=== PATIENT | female | born 2000 | race Caucasian/White ===

== ENCOUNTER 2020-09-15 15:31 | Emergency (ER) | payer SELFPAY ==
[2020-09-15] MEDS ORDERED: Ondansetron PF 4 MG/2 ML Vial ONE ×2 (16:44→17:53)
[2020-09-15 16:53] LABS: #Monocytes 0.5 10x3/uL (0.0-1.1); #Neutrophils 6.5 10x3/uL (1.5-8.4); %Basophils 0.3 % (0.0-2.0); %Eosinophils 0.3 % (0.0-6.0); %Lymphocytes 7.5 % (18.0-47.0); %Monocytes 6.1 % (0.0-10.0); %Neutrophils 84.8 % (40.0-75.0); Hemoglobin 14.6 g/dL (12.0-15.5); Mean Corpuscular HGB CONC 32.9 g/dL (32.0-36.0); Mean Corpuscular Hemoglobin 31.1 pg (27.0-33.0); Mean Corpuscular Volume 94.5 fl (81.6-98.3); Mean Platelet Volume 8.8 fl (7.4-10.4); Platelet Count 241 10x3/uL (150-450); RBC Distribution Width 12.5 % (11.5-14.5); White Blood Cell (WBC) Count 7.7 10x3/uL (3.5-10.5)
[2020-09-15 17:13] LABS: ALT (SGPT) 24 U/L (8-55); AST (SGOT) 14 U/L (5-34); Albumin 4.2 g/dL (3.5-5.0); Alkaline Phosphatase 100 U/L (40-110); Anion Gap 13 mmol/L (10-20); BUN (Urea Nitrogen) 10 mg/dL (7.0-18.7); CK (CPK) 28 U/L (29-168); Calc. Creatinine Clearance 0 mL/min (70-130); Calcium 9.1 mg/dL (7.8-10.44); Carbon Dioxide 25 mmol/L (22-29); Chloride 104 mmol/L (98-107); Globulin 3.4 g/dL (2.4-3.5); Glucose 98 mg/dL (70-105); Lipase 9 U/L (8-78); Potassium 3.5 mmol/L (3.5-5.1); Protein, Total 7.6 g/dL (6.0-8.3); Sodium 138 mmol/L (136-145)
[2020-09-15 18:34] LABS: Bilirubin Neg (Negative); Blood, Urine 25 (Negative); Clarity Clear (Clear); Glucose, Urine (Dipstick) Normal (Negative); Ketone, Urine 50 mg/dL (Negative); Leukocyte 25 (Negative); Nitrite Negative (Negative); Protein, Urine (Dipstick) 15 mg/dl (Neg-Trace); Urobilinogen Normal mg/dL (Less than 2)
[2020-09-15 18:35] LABS: Pregnancy Test - Urine (BHCG) Negative (Negative); Pregu Control Background? CLEAR/WHITE (CLR/WHITE); Pregu Control Bar Appear? YES (CONTROL BAR)
[2020-09-15 18:47] LABS: Bacteria/HPF Rare-Few HPF (None Seen)
[2020-09-15 18:48] LABS: Trichomonas/HPF Rare HPF (None Seen)
[2020-09-15] MEDS ORDERED: Morphine 4 MG/ML VIAL ONE (19:15)
[2020-09-16 13:38] LABS: SARS-CoV-2 PCR by NAA Not Detected (NotDetected)
== END 2020-09-15 20:09 | disposition home or self-care (01) ==
LOC: CSHERS 15:31
DX: R10.11 Right upper quadrant pain (principal); R11.2 Nausea with vomiting, unspecified; F17.210 Nicotine dependence, cigarettes, uncomplicated; Z20.822 Contact with and (suspected) exposure to COVID-19
CPT/HCPCS: 76705; 80053; 81003; 81015; 81025; 82550; 83690; 85025; 87086; 87635; 96361; 96374; 96375; 96376; J2270; J2405; U0003; U0005